=== PATIENT | male | born 1960 | race African-American/Black ===

== ENCOUNTER 2016-08-23 15:41 | Emergency (ER) | payer BC, OTHER ==
[~2016-08-23] VITALS: Ht 188 cm; Wt 112.5 kg
[~2016-08-23 15:41] MED LIST: ATENOLOL50 MG ORAL; CIPRO500 MG/51 PO; CRESTOR10 M2 ORAL; EXFORGE 10-3201 EACH ORAL; HYDROCHLOROTH12.5 MG ORAL; NORCO 5-325 TA1 EACH ORAL
--- NOTE | 2016-08-23 16:09 | Emergency Room Report ---
History of Present Illness General Chief Complaint: Pain Source: Patient Present Illness HPI Patient is a 55-year-old male who presented after having increased pain to his left arm as well as his chest. Patient had gradual onset of symptoms. Patient had no recent trauma. Patient reports having increased numbness and weakness to his left upper extremity. Patient denied prior chest pain the pain had been constant and worse with movements. Patient was noted to have a burning type sensation to his upper extremities which did not go to his hands. Allergies: Coded Allergies: No Known Allergies (Unverified , 12/08/13) Patient History Past Medical History: see triage record Reviewed Nursing Documentation: PMH: Agreed, PSxH: Agreed Nursing Documentation-PMH Hx Hypertension: Yes Review of Systems All Other Systems: negative except mentioned in HPI Physical Exam Vital Signs Date Time Temp Pulse Resp B/P Pulse Ox O2 Delivery O2 Flow Rate FiO2 08/23/16 15:45 97.9 61 17 135/84 94 Room Air Sp02 EP Interpretation: reviewed, normal General Appearance: normal inspection, well appearing, no apparent distress, alert, GCS 15, non-toxic Head: atraumatic ENT: normal ENT inspection, hearing grossly normal, normal voice Neck: normal inspection, supple, no bony tend, limited range of motion, tender lateral - increased pain with left rotation and compression Respiratory: normal inspection, lungs clear, normal breath sounds, no respiratory distress, no retraction, no wheezing Cardiovascular #1: regular rate, rhythm, no edema Gastrointestinal: normal inspection, normal bowel sounds, non tender, soft, no guarding, no hernia Genitourinary: no CVA tenderness Musculoskeletal: normal inspection, back normal, normal range of motion, other - limited ROM in extension, increased pain with left rotation Neurologic: normal inspection, alert, oriented x3, responsive, 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 Because of complexity of patient's case laboratory testing and imaging studies were ordered. A CT imaging of the cervical spine was ordered the patient's symptomatology.CT of chest was ordered due to patient's elevated d-dimer and the risk factors including prolonged driving as well as the abnormal EKG. The patient was noted to have a lateral and inferior T wave inversion. Patient states that he has had a cardiac catheterization approximately one year ago which showed no evidence of acute coronary blockage. EKG interpreted by de showed normal sinus rhythm with a rate of 65 there is T-wave inversion as well as inferior T-wave inversion as well as left ventricular hypertrophy. A CT of the chest read by radiologist showed no acute pulmonary embolism. Patient was noted to have some degenerative changes cervical spine CT. The patient is also noted to have some thyromegaly. Patient was advised of CT findings and was advised followup with a maintenance specialist. The patient is advised to follow up with primary care doctor in 1-2 days. Patient is advised to return if any worsening condition or if any changes in status that are concerning. Labs Test 08/23/16 16:11 White Blood Count 10.4 K/UL (4.8-10.8) Red Blood Count 5.14 M/UL (4.70-6.10) Hemoglobin 15.5 G/DL (14.2-18.0) Hematocrit 49.2 % (42.0-52.0) Mean Corpuscular Volume 96 FL (80-99) Mean Corpuscular Hemoglobin 30.2 PG (27.0-31.0) Mean Corpuscular Hemoglobin Concent 31.6 G/DL (32.0-36.0) Red Cell Distribution Width 12.8 % (11.6-14.8) Platelet Count 195 K/UL (150-450) Mean Platelet Volume 7.5 FL (6.5-10.1) Neutrophils (%) (Auto) 52.4 % (45.0-75.0) Lymphocytes (%) (Auto) 36.7 % (20.0-45.0) Monocytes (%) (Auto) 8.2 % (1.0-10.0) Eosinophils (%) (Auto) 1.9 % (0.0-3.0) Basophils (%) (Auto) 0.9 % (0.0-2.0) D-Dimer 518 ng/mL (<500) Sodium Level 142 mEQ/L (135-145) Potassium Level 4.0 mEQ/L (3.4-4.9) Chloride Level 98 mEQ/L (98-107) Carbon Dioxide Level 25 mEQ/L (20-30) Anion Gap 19 (5-15) Blood Urea Nitrogen 13 mg/dL (7-23) Creatinine 1.0 mg/dL (0.7-1.2) Estimat Glomerular Filtration Rate > 60 mL/min (>60) Glucose Level 100 mg/dL (74-106) Calcium Level 10.3 mg/dL (8.6-10.2) Total Bilirubin 0.5 mg/dL (0.0-1.2) Aspartate Amino Transf (AST/SGOT) 22 U/L (5-40) Alanine Aminotransferase (ALT/SGPT) 28 U/L (3-41) Alkaline Phosphatase 102 U/L (40-129) Total Creatine Kinase 430 U/L (38-174) Creatine Kinase MB 3.1 ng/mL (< 6.7) Creatine Kinase MB Relative Index 0.7 Troponin I < 0.30 ng/mL (<=0.30) Total Protein 8.0 g/dL (6.6-8.7) Albumin 4.3 g/dL (3.5-5.2) Globulin 3.7 g/dL Albumin/Globulin Ratio 1.1 (1.0-2.7) Chest X-Ray Diagnostic Results EP Interpretation: Yes Findings: no consolidation, no effusion, no pneumothorax, no acute cardiopulmonary disease Number of Views: 1 Last Vital Signs Date Time Temp Pulse Resp B/P Pulse Ox O2 Delivery O2 Flow Rate FiO2 08/23/16 15:45 97.9 61 17 135/84 94 Room Air Status: improved Disposition: HOME, SELF-CARE Condition: Stable Scripts Gabapentin* (NEURONTIN*) 400 Mg Capsule 400 MG ORAL THREE TIMES A DAY, #30 CAP 0 Refills Prov: Akash Palmer 08/23/16 Akash Palmer Aug 23, 2016 16:09
[2016-08-23] MEDS ORDERED: Dexamethasone 4mg/ml vial IVP ONE (16:15)
[2016-08-23] MEDS ORDERED: Ketorolac 30mg Inj IV ONE (16:15)
[2016-08-23 16:47] LABS: BASOPHILS % (AUTO) 0.9 % (0.0-2.0); EOSINOPHILS % (AUTO) 1.9 % (0.0-3.0); LYMPHOCYTES % (AUTO) 36.7 % (20.0-45.0); MEAN CORPUSCULAR HEMOGLOBIN 30.2 PG (27.0-31.0); MEAN CORPUSCULAR HGB CONC 31.6 G/DL (32.0-36.0); MEAN CORPUSCULAR VOLUME 96 FL (80-99); MEAN PLATELET VOLUME 7.5 FL (6.5-10.1); MONOCYTES % (AUTO) 8.2 % (1.0-10.0); NEUTROPHILS % (AUTO) 52.4 % (45.0-75.0); PLATELET COUNT 195 K/UL (150-450); RED BLOOD COUNT 5.14 M/UL (4.70-6.10); RED CELL DISTRIBUTION WIDTH 12.8 % (11.6-14.8); WHITE BLOOD COUNT 10.4 K/UL (4.8-10.8)
[2016-08-23 17:01] LABS: TROPONIN I < 0.30 ng/mL (<=0.30)
[2016-08-23 17:29] LABS: ALANINE AMINOTRANSFERASE 28 U/L (3-41); ALBUMIN/GLOBULIN RATIO 1.1 (1.0-2.7); ANION GAP 19 (5-15); ASPARTATE AMINO TRANSFERASE 22 U/L (5-40); CALCIUM 10.3 mg/dL (8.6-10.2); CARBON DIOXIDE 25 mEQ/L (20-30); CHLORIDE 98 mEQ/L (98-107); GLOMERULAR FILTRATION RATE > 60 mL/min (>60); HEMOLYSIS 8; SODIUM 142 mEQ/L (135-145)
[2016-08-23 17:38] LABS: CKMB 3.1 ng/mL (< 6.7)
[2016-08-23 18:19] VITALS: BP 146/84
[2016-08-23] MEDS ORDERED: NEURONTIN400 MG ORAL (18:29)
[2016-08-23 19:19] VITALS: BP 129/66
--- NOTE | 2016-08-24 10:25 | Diagnostic Imaging Report ---
Clinical history: Acute chest of breath. Technique: Portable AP chest radiograph was obtained. Comparison: 12/08/13. Findings: The lungs are well inflated and clear. There is no pneumonia or pulmonary edema. There is no pleural effusion or pneumothorax. The cardiac and mediastinal silhouettes are normal in appearance. The bony thorax is unremarkable. Impression: No radiographic evidence of acute cardiopulmonary process..
--- NOTE | 2016-08-24 10:27 | Diagnostic Imaging Report ---
History: Pain. Technique: Frontal, lateral, and open-mouth odontoid views of the cervical spine are provided. Comparison: None. Findings: Overall cervical alignment is maintained. Vertebral body and disk space heights are preserved. The lateral masses of C1 and C2 are well aligned. The atlantoaxial interval is normal. There is no prevertebral soft tissue swelling or other evidence of acute fracture. Impression: No radiographic evidence of acute displaced cervical spine fracture.
--- NOTE | 2016-08-24 10:46 | Diagnostic Imaging Report ---
HISTORY: Neck pain.\H\ \N\COMPARISON: None. \H\ \N\TECHNIQUE: \H\ \N\Serial axial images were obtained through the cervical spine without the use of intravenous contrast on a multidetector CT. Multiplanar reformatted images were then obtained. FINDINGS: Mild disc space height loss is noted at C5-C6 and C6-C7 levels. Vertebral body heights and remaining disc spaces are preserved. The lateral masses of C1 and C2 are well aligned. The AA interval is normal. There is no prevertebral or paraspinal soft tissue swelling or other evidence of acute fracture, subluxation, jumped facet, significant arthritic change or destructive bony lesion. Mild cervical spondylosis with multilevel uncovertebral and facet arthropathy resulting in some degree of neural foraminal stenosis, particularly at C3-C4 through C6-C7 levels noted. Opacification of the right sphenoid sinus is noted. Visualized thyroid gland appears enlarged and heterogeneous. IMPRESSION: 1. No acute cervical spine fracture or malalignment. 2. Mild cervical spondylosis. 3. Right sphenoid sinus opacification. 4. Thyromegaly. Please correlate with endocrinologic evaluation and thyroid function tests.
--- NOTE | 2016-08-24 16:29 | Cardiology Report ---
APPROVED REPORT EKG Measurement Heart [id number] Normal sinus rhythm Abnormal ECG
--- NOTE | 2016-08-26 09:12 | Diagnostic Imaging Report ---
EXAM: CT Chest HISTORY: Abnormal labs. Chest pain. TECHNIQUE: Serial 3.0 mm axial images were obtained from the thoracic inlet through the adrenals after administration of 120 cc of Isovue 370 . Multiplanar reformats were performed. COMPARISON: No prior study is available for comparison. FINDINGS: Mild subsegmental atelectasis or scarring is noted at the right lung base. No lobar or segmental consolidation noted. No pleural effusion is seen. Secretions are noted in the lower trachea and right mainstem bronchus. The heart is not enlarged. There is no evidence of pericardial effusion. There is no evidence of mediastinal, hilar or axillary adenopathy. The thyroid appears unremarkable. There is adequate opacification of the pulmonary arteries to the segmental level. The subsegmental pulmonary arteries are not optimally evaluated. Within this confine, no acute pulmonary embolism identified. Thoracic aorta and great vessels are normal in caliber. The visualized upper abdominal organs appear grossly normal. Chronic fracture deformity of the left posterior fifth and sixth ribs noted. IMPRESSION: 1. No distinct evidence of acute pulmonary embolism. 2. No evidence of pneumonia. Suspected right basilar atelectasis or scarring. 3. Chronic fracture deformity of the left posterior fifth and sixth ribs.
== END 2016-08-23 19:19 | disposition home or self-care (01) ==
LOC: EMR 16:35
DX: M54.12 Radiculopathy, cervical region (principal); I51.7 Cardiomegaly; R94.31 Abnormal electrocardiogram [ECG] [EKG]; I10 Essential (primary) hypertension; M79.602 Pain in left arm
CPT/HCPCS: 36415; 71010; 71275; 72040; 72125; 80053; 82550; 82553; 84484; 85025; 85379; 93005; 96374; 96375; 99284; J1100; J1885; Q9967

== ENCOUNTER 2018-02-17 10:13 | Day surgery (SDC) | payer OTHER ==
--- NOTE | 2018-02-15 11:01 | Pre-op HX & Phy Repo 2 SIG ---
DATE OF ADMISSION: 02/17/2018 ANTICIPATED DATE OF SURGERY: 02/17/2018 HISTORY OF PRESENT ILLNESS: The patient is a 57-year-old gentleman who I initially evaluated in 06/2015, with symptomatic posterior vitreous detachment and epiretinal membrane in his left eye. He underwent a pars plana vitrectomy with membrane peel at [facility] on December 09, 2017. He has done well postoperatively. He is now being scheduled for pars plana vitrectomy for the right eye for symptomatic vitreous opacities. PAST MEDICAL HISTORY: Marked for hypercholesteremia, hypertension, arthritis, asthma. He is status post hand surgery and previous vitrectomy. MEDICATIONS: Include Crestor, hydrochlorothiazide, amlodipine, valsartan. ALLERGIES: He has no known drug allergies. SOCIAL HISTORY: Remarkable for occasional alcohol use. He does not use tobacco. OPHTHALMIC EXAMINATION: Visual acuity 20/20 right eye. Tension is 18 in the right and 17 in the left eye. Slit-lamp demonstrated the conjunctiva is quiet. The cornea is clear. The anterior chambers are quiet with 1+ nuclear sclerosis of the lenses of both eyes. Dilated vitreoretinal examination of right eye demonstrates clear media with cup-to-disc ratio of 0.3. There is a posterior vitreous detachment with opacities present with some and has flattened periphery. Left eye media is clear, status post vitrectomy. There is mild thickening of macula, status post recent membrane peel flattened periphery. IMPRESSION: Symptomatic vitreous opacities in the right eye and posterior vitreous detachment, right eye. I discussed my findings with the patient. 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 He states that this is causing him to feel unsafe at work and for this reason, I will go ahead and recommend vitrectomy with possible membrane peel to the right eye. Complications such as hemorrhage, infection, loss of vision, loss of eye, ptosis, glaucoma, strabismus, failure to obtain desired results, cataract, dislocated lens, retinal detachment were all discussed. He understands and agrees to the surgery,. Greg Jackson M.D. DR: Geovanna JOB#: [id number] CC:
[2018-02-17] VITALS (9 sets, daily range): BP systolic 133–166; BP diastolic 85–101
[~2018-02-17] VITALS: Ht 188 cm; Wt 108.9 kg
[~2018-02-17 10:13] MED LIST changes: +AMLODIPINE BESY10 MG ORAL; +BYSTOLIC10 MG ORAL; +DIOVAN320 MG ORAL; +NEURONTIN400 MG ORAL; +Vigamox Opth Soln 3ml RIGHT EYE SCH
[2018-02-17] MEDS ORDERED: Phenylephrine 2.5% Op 2ml Soln ONE (10:23)
[2018-02-17] MEDS ORDERED: Cyclopentolate 1% Opth Sol 2ml ONE (10:23)
[2018-02-17] MEDS ORDERED: Tropicamide 1% Opth 15ml Soln ONE (10:23)
[2018-02-17] MEDS ORDERED: Vigamox Opth Soln 3ml ONE (10:24)
[2018-02-17] MEDS: Phenylephrine 2.5% Op 2ml Soln RIGHT EYE SCH ×3 (10:37→10:54)
[2018-02-17] MEDS: Tropicamide 1% Opth 15ml Soln RIGHT EYE SCH ×3 (10:37→10:53)
[2018-02-17] MEDS: Cyclopentolate 1% Opth Sol 2ml RIGHT EYE SCH ×3 (10:37→10:54)
--- NOTE | 2018-02-17 11:30 | Pre-Procedure Note/Attestation ---
Pre-Procedure Note/Attestation Complete Prior to Procedure Planned Procedure: right Procedure Narrative: pars plana vitrectomy Indications for Procedure Pre-Operative Diagnosis: Posterior vitreous detachment with vitreous opacities Attestation I attest that I discussed the nature of the procedure; its benefits; risks and complications; and alternatives (and the risks and benefits of such alternatives ), prior to the procedure, with the patient (or the patient's legal customer contact representative). I attest that, if there was a reasonable possibility of needing a blood transfusion, the patient (or the patient's legal customer contact representative) was given the [facility] standardized written summary, pursuant to the Max Vasquez Blood Safety Act ([place] Health and Safety Code # 1645, as amended). I attest that I re-evaluated the patient just prior to the surgery and that there has been no change in the patient's H&P, except as documented below: Greg Jackson MD Feb 17, 2018 11:30
[2018-02-17] MEDS ORDERED: Sterile Water Irrig 1000ml IRRIG ONE (12:00)
[2018-02-17] MEDS ORDERED: LR 1000ml ONE (12:00)
[2018-02-17] MEDS ORDERED: NS Irrig 1000ml ONE (12:00)
[2018-02-17] MEDS ORDERED: BSS 500ml btl ONE (12:06)
[2018-02-17] MEDS ORDERED: Goniosol 2.5% Opth Soln - 15ml ONE (12:06)
[2018-02-17] MEDS ORDERED: EPINEPHrine 1mg/1ml Amp ONE (12:06)
[2018-02-17] MEDS ORDERED: Lidocaine 4% Amp ONE (12:06)
[2018-02-17] MEDS ORDERED: Dexamethasone 4mg/ml vial ONE (12:06)
[2018-02-17] MEDS ORDERED: BSS 15ml BTL ONE (12:07)
[2018-02-17] MEDS ORDERED: Bupivacaine 0.75% 30ml vial INJ ONE (12:07)
[2018-02-17] MEDS ORDERED: Tetracaine 0.5% Opth 4ml Soln ONE (12:07)
[2018-02-17] MEDS ORDERED: Povidone-Iodine 5% opth solution ONE (12:07)
[2018-02-17] MEDS ORDERED: Lidocaine 1% MPF 10mg/ml 5ml ONE (12:14)
[2018-02-17] MEDS ORDERED: Midazolam 2mg/2ml Inj ONE (12:14)
[2018-02-17] MEDS ORDERED: Propofol 200mg/20ml IV ONE (12:14)
[2018-02-17] MEDS ORDERED: fentaNYL 100 mcg/2 mL IV ONE (12:14)
[2018-02-17] MEDS ORDERED: DiphenhydrAMINE 50mg/ml Inj ONE (12:20)
[2018-02-17] MEDS ORDERED: LR 1000ml 1,000 ML IVLG SCH (12:41)
--- NOTE | 2018-02-17 12:41 | Anethesia Preoperative Eval ---
Anesthesia Pre-op PMH/ROS General Date of Evaluation: Feb 17, 2018 Anesthesiologist: John ASA Score: ASA 2 Mallampati Score Class I : Soft palate, uvula, fauces, pillars visible Class II: Soft palate, uvula, fauces visible Class III: Soft palate, base of uvula visible Class IV: Only hard plate visible Mallampati Classification: Class II Surgeon: Renetta Diagnosis: Right eye retinal detachment Surgical Procedure: Right eye vitrectomy Anesthesia History: none Family History: no anesthesia problems Allergies: Coded Allergies: No Known Allergies (Unverified , 02/16/18) Medications: see eMAR Past Medical History Cardiovascular: Reports: HTN, other - HLD; Denies: CAD, TN, valve dz, arrhythmia Pulmonary: Denies: asthma, COPD, GLORY, other Gastrointestinal/Genitourinary: Denies: GERD, CRI, ESRD, other Neurologic/Psychiatric: Denies: dementia, CVA, depression/anxiety, TIA, other Endocrine: Denies: DM, hypothyroidism, steroids, other HEENT: Denies: cataract (L), cataract (R), glaucoma, CAMPO (L), CAMPO (R), other Hematology/Immune: Denies: anemia, DVT, bleeding disorder, other Musculoskeletal/Integumentary: Reports: OA; Denies: RA, DJD, DDD, edema, other Other: obesity PSxH Narrative: left eye vitrectomy Anesthesia Pre-op Phys. Exam Physician Exam Last Vital Signs Date Time Temp Pulse Resp B/P (MAP) Pulse Ox O2 Delivery O2 Flow Rate FiO2 02/17/18 10:52 97.3 50 18 133/85 (101) 97 97.3 02/17/18 10:42 Room Air Constitutional: NAD Cardiovascular: RRR Respiratory: CTA Airway Exam Mallampati Score: Class II MO: full ROM: full Teeth: intact Anesthesia Pre-op A/P Labs see chart Studies Pre-op Studies: EKG - sr Risk Assessment & Plan Assessment: ASA II Plan: MAC Status Change Before Surgery: No Pre-Antibiotics Drug: N/A Majo Ayala MD Feb 17, 2018 12:41
[2018-02-17] MEDS ORDERED: DiphenhydrAMINE 50mg/ml Inj IVP PRN (12:45)
[2018-02-17] MEDS ORDERED: Labetalol 5mg/ml 20ml vial IV PRN (12:45)
--- NOTE | 2018-02-17 13:00 | 48 Hour Post Anesthesia Eval ---
Post Anesthesia Evaluation Procedure: Right eye vitrectomy Date of Evaluation: Feb 17, 2018 Airway: patent Nausea: No Vomiting: No Pain Intensity: 0 Hydration Status: adequate Cardiopulmonary Status: at baseline Mental Status/LOC: patient returned to baseline Post-Anesthesia Complications: 0 Follow-up care needed: ready to discharge Majo Ayala MD Feb 17, 2018 13:00
--- NOTE | 2018-02-17 13:00 | Immediate Post-Op Evaluation ---
Immediate Post-Op Evalulation Immediate Post-Op Evalulation Procedure: Right eye vitrectomy Date of Evaluation: Feb 17, 2018 Time of Evaluation: 13:00 IV Fluids: 200 Blood Products: 0 Estimated Blood Loss: 0 Urinary Output: 0 Blood Pressure Systolic: 151 Blood Pressure Diastolic: 95 Pulse Rate: 51 Respiratory Rate: 12 O2 Sat by Pulse Oximetry: 98 Temperature (Fahrenheit): 97.4 Pain Score (1-10): 0 Nausea: No Vomiting: No Complications 0 Patient Status: awake, reacts, patent, none Hydration Status: adequate Drug: N/A Majo Ayala MD Feb 17, 2018 13:00
--- NOTE | 2018-02-17 13:26 | Brief Operative Note ---
Immediate Post Operative Note Operative Note Pre-op Diagnosis: Posterior vitreous detachment with vitreous opacities Procedure: pars plana vitrectomy OD Post-op Diagnosis: same as pre op Post-op Diagnosis: same as pre-op Anesthesia: local, MAC Specimen: none Complications: none Fluids: o Estimated Blood Loss: none Drains: hemovac Implant(s) used?: No Greg Jackson MD Feb 17, 2018 13:26
--- NOTE | 2018-02-17 18:45 | Operative Note - Dictated ---
DATE OF OPERATION: 02/17/2018 PREOPERATIVE DIAGNOSIS: Vitreous opacities, right eye. POSTOPERATIVE DIAGNOSIS: Vitreous opacities, right eye. PROCEDURE: Pars plana vitrectomy, right eye. SURGEON: Greg Jackson M.D. . ANESTHESIA: Local (4% lidocaine and 0.75% bupivacaine via retrobulbar injection). COMPLICATIONS: None. DESCRIPTION OF PROCEDURE: After informed consent was obtained, clearance by anesthesia, identification by Dr. Jackson, the patient was brought to the operating room where he received anesthetic injection. The right eye was prepped and draped in usual sterile ophthalmic fashion. A wire lid speculum was placed in conjunctiva fornix and a 3-port 27-gauge vitrectomy was created, trocars and cannulas placed, 4 mm posterior surgical limbus supratemporally, supranasally, and inferotemporally. Once the infusion cannula was noted to be inside the eye, the infusion was turned on. The cortical vitreous then moved from the posterior surface of the lens to the surface of the retina, which was excised to the vitreous base. The eye was examined using scleral depression. No holes or tears were noted in the periphery. The trocar and cannulas were removed. The wounds were noted to be watertight. Subconjunctival cefazolin, Decadron and topical atropine drops were placed. The eye was patched and shielded. The patient left the operating room in stable condition. Greg Jackson M.D. DR: DEBBIE JOB#: [id number] CC:
== END 2018-02-17 15:00 | disposition home or self-care (01) ==
LOC: SUR 10:13
DX: H43.391 Other vitreous opacities, right eye (principal); E78.00 Pure hypercholesterolemia, unspecified; I10 Essential (primary) hypertension; M19.90 Unspecified osteoarthritis, unspecified site; J45.909 Unspecified asthma, uncomplicated; G47.33 Obstructive sleep apnea (adult) (pediatric); E66.9 Obesity, unspecified; Z68.30 Body mass index [BMI] 30.0-30.9, adult
CPT/HCPCS: 67036; J0171; J0690; J1100; J1200; J2250; J2704; J3010; J3470; J3490; J7120; 94003; 94150

== ENCOUNTER 2018-09-19 00:38 | Emergency (ER) | payer OTHER ==
[~2018-09-19] VITALS: Ht 188 cm; Wt 115.7 kg
[~2018-09-19 00:38] MED LIST changes: -Vigamox Opth Soln 3ml RIGHT EYE SCH
--- NOTE | 2018-09-19 00:58 | NUR ---
ED Nurse Note: Patient presents with complaints of heart palpiatations but no pain.
[2018-09-19 00:59] VITALS: BP 129/69
[2018-09-19 01:28] LABS: BASOPHILS % (AUTO) 0.8 % (0.0-2.0); EOSINOPHILS % (AUTO) 1.9 % (0.0-3.0); HEMATOCRIT 42.2 % (42.0-52.0); HEMOGLOBIN 13.8 G/DL (14.2-18.0); LYMPHOCYTES % (AUTO) 41.6 % (20.0-45.0); MEAN CORPUSCULAR VOLUME 95 FL (80-99); NEUTROPHILS % (AUTO) 47.8 % (45.0-75.0); PLATELET COUNT 146 K/UL (150-450); RED BLOOD COUNT 4.47 M/UL (4.70-6.10); RED CELL DISTRIBUTION WIDTH 12.4 % (11.6-14.8); WHITE BLOOD COUNT 9.1 K/UL (4.8-10.8)
[2018-09-19 01:39] LABS: ANION GAP 10 mmol/L (5-15); BLOOD UREA NITROGEN 20 mg/dL (7-18); CALCIUM 9.4 MG/DL (8.5-10.1); CARBON DIOXIDE 28 MMOL/L (21-32); CHLORIDE 104 MMOL/L (98-107); POTASSIUM 3.2 MMOL/L (3.5-5.1); SODIUM 142 MMOL/L (136-145)
[2018-09-19 01:54] LABS: ALANINE AMINOTRANSFERASE 29 U/L (12-78); ALBUMIN 3.6 G/DL (3.4-5.0); ALBUMIN/GLOBULIN RATIO 0.9 (1.0-2.7); ALKALINE PHOSPHATASE 109 U/L (46-116); ASPARTATE AMINO TRANSFERASE 16 U/L (15-37); BILIRUBIN,TOTAL 0.3 MG/DL (0.2-1.0); CKMB 2.6 NG/ML (0.0-3.6); CREATINE KINASE 346 U/L (26-308)
--- NOTE | 2018-09-19 02:20 | NUR ---
ED Nurse Note: Patient cleared for discharge, medication administered, patient vebalized understanding of discharge instructions. ID band removed, iV removed, patient ambulatory with steady gait. departed with all personal belongings accompanied by his girlfriend.
[2018-09-19 02:22] VITALS: BP 129/69
--- NOTE | 2018-09-19 02:27 | Diagnostic Imaging Report ---
EXAM: XR Chest, 1 View CLINICAL HISTORY: CP TECHNIQUE: Frontal view of the chest. COMPARISON: 08-23-16 FINDINGS: Lungs: Unremarkable. No consolidation. Pleural space: Unremarkable. No pneumothorax. Heart: Unremarkable. No cardiomegaly. Mediastinum: Unremarkable. Bones/joints: Old left rib fractures. IMPRESSION: No acute findings substantial change
--- NOTE | 2018-09-19 03:25 | Emergency Room Report ---
History of Present Illness General Chief Complaint: Palpitations Source: Patient Present Illness HPI 57-year-old male presents ED for evaluation. Patient complaining of palpitations. Tates that for the last week and a half he's been feeling a skipped beat. States he feels short of breath for that moment. States he used to get these episodes occasionally but feels more persistent over the last week and a half. Denies any chest pain or shortness of breath. Notes history of hypertension. States he is compliant with his medications. Denies smoking or drug use. No other aggravating relieving factors. Denies any other associated symptoms Allergies: Coded Allergies: No Known Allergies (Unverified , 02/16/18) Patient History Past Medical History: HTN Past Surgical History: none Pertinent Family History: none Social History: Denies: smoking, alcohol use, drug use Immunizations: UTD Reviewed Nursing Documentation: PMH: Agreed; PSxH: Agreed Nursing Documentation-PMH Hx Cardiac Problems: Yes Hx Hypertension: Yes Hx Asthma: Yes Hx Cancer: No Hx Gastrointestinal Problems: No Hx Neurological Problems: No Review of Systems All Other Systems: negative except mentioned in HPI Physical Exam Vital Signs Date Time Temp Pulse Resp B/P (MAP) Pulse Ox O2 Delivery O2 Flow Rate FiO2 09/19/18 00:44 98.2 60 16 132/65 93 Room Air Sp02 EP Interpretation: reviewed, normal General Appearance: no apparent distress, alert, GCS 15, non-toxic, obese Head: normocephalic, atraumatic Eyes: bilateral eye normal inspection, bilateral eye PERRL ENT: hearing grossly normal, normal pharynx, no angioedema, normal voice Neck: full range of motion, supple/symm/no masses Respiratory: chest non-tender, lungs clear, normal breath sounds, speaking full sentences Cardiovascular #1: regular rate, rhythm, no edema Cardiovascular #2: 2+ carotid (R), 2+ carotid (L), 2+ radial (R), 2+ radial (L) , 2+ dorsalis pedis (R), 2+ dorsalis pedis (L) Gastrointestinal: normal bowel sounds, non tender, soft, non-distended, no guarding, no rebound Rectal: deferred Genitourinary: normal inspection, no CVA tenderness Musculoskeletal: back normal, gait/station normal, normal range of motion, non- tender Neurologic: alert, oriented x3, responsive, motor strength/tone normal, sensory intact, speech normal Psychiatric: judgement/insight normal, memory normal, mood/affect normal, no suicidal/homicidal ideation Reflexes: 3+ bicep (R), 3+ bicep (L), 3+ tricep (R), 3+ tricep (L), 3+ knee (R) , 3+ knee (L) Skin: normal color, no rash, warm/dry, well hydrated Lymphatic: no adenopathy Medical Decision Making Diagnostic Impression: Primary Impression: Palpitations ER Course Hospital Course 57-year-old M presents ED complaining of palpitations Differential diagnoses include: afib, Vtach, SVT, anxiety, dehydration Clinical course Patient placed on stretcher. After initial history and physical I ordered labs , EKG, chest x-ray, IVFs. labs reviewed- all electrolytes normal, troponins negative, no leukocytosis, hemoglobin/hematocrit stable EKG - sinus bradycardia, PVCs noted Chest x-ray-no cardiomegaly, no rib fracture, no pneumothorax, no acute process During ED course patient had PVCs on the teletypesetter monitor. Never persistent. Patient asymptomatic here. Discussed findings with patient. I believe patient can be safely discharged to home at this time. Patient states he has a PMD he can follow-up with this week. I. I feel this is a highly complex case requiring extensive working including EKG/Rhythm strip, Xray/CT/US, Blood/urine lab work, repeat exams while in ED, and administration of strong opiates/narcotics for pain control, admission to hospital or close patient follow up. Diagnosis - palpitations Stable and discharged to home. Instructed to followup with PMD. Return to ED if symptoms recur or worsen Labs Test 09/19/18 01:13 White Blood Count 9.1 K/UL (4.8-10.8) Red Blood Count 4.47 M/UL (4.70-6.10) Hemoglobin 13.8 G/DL (14.2-18.0) Hematocrit 42.2 % (42.0-52.0) Mean Corpuscular Volume 95 FL (80-99) Mean Corpuscular Hemoglobin 30.9 PG (27.0-31.0) Mean Corpuscular Hemoglobin Concent 32.6 G/DL (32.0-36.0) Red Cell Distribution Width 12.4 % (11.6-14.8) Platelet Count 146 K/UL (150-450) Mean Platelet Volume 7.7 FL (6.5-10.1) Neutrophils (%) (Auto) 47.8 % (45.0-75.0) Lymphocytes (%) (Auto) 41.6 % (20.0-45.0) Monocytes (%) (Auto) 8.0 % (1.0-10.0) Eosinophils (%) (Auto) 1.9 % (0.0-3.0) Basophils (%) (Auto) 0.8 % (0.0-2.0) Sodium Level 142 MMOL/L (136-145) Potassium Level 3.2 MMOL/L (3.5-5.1) Chloride Level 104 MMOL/L (98-107) Carbon Dioxide Level 28 MMOL/L (21-32) Anion Gap 10 mmol/L (5-15) Blood Urea Nitrogen 20 mg/dL (7-18) Creatinine 1.0 MG/DL (0.55-1.30) Estimat Glomerular Filtration Rate > 60 mL/min (>60) Glucose Level 103 MG/DL (74-106) Calcium Level 9.4 MG/DL (8.5-10.1) Total Bilirubin 0.3 MG/DL (0.2-1.0) Aspartate Amino Transf (AST/SGOT) 16 U/L (15-37) Alanine Aminotransferase (ALT/SGPT) 29 U/L (12-78) Alkaline Phosphatase 109 U/L (46-116) Total Creatine Kinase 346 U/L (26-308) Creatine Kinase MB 2.6 NG/ML (0.0-3.6) Creatine Kinase MB Relative Index 0.7 Troponin I 0.000 ng/mL (0.000-0.056) Total Protein 7.5 G/DL (6.4-8.2) Albumin 3.6 G/DL (3.4-5.0) Globulin 3.9 g/dL Albumin/Globulin Ratio 0.9 (1.0-2.7) EKG Diagnostic Results Rate: bradycardiac Rhythm: NSR ST Segments: other - PVCs ASA given to the pt in ED: No Rhythm Strip Diag. Results EP Interpretation: yes Rhythm: other - PVCs noted Chest X-Ray Diagnostic Results Chest X-Ray Diagnostic Results : Chest X-Ray Ordered: Yes # of Views/Limited/Complete: 1 View Indication: Other EP Interpretation: Yes Interpretation: no consolidation, no effusion, no pneumothorax, no acute cardiopulmonary disease Impression: No acute disease Electronically Signed by: Electronically signed by Varghese Singh MD Last Vital Signs Date Time Temp Pulse Resp B/P (MAP) Pulse Ox O2 Delivery O2 Flow Rate FiO2 09/19/18 02:22 98.2 16 129/69 93 Room Air 09/19/18 00:59 56 Status: improved Disposition: HOME, SELF-CARE Condition: Stable Referrals: NON PHYSICIAN (PCP) Patient Instructions: Premature Ventricular Contraction Varghese Singh MD Sep 19, 2018 03:25
--- NOTE | 2018-09-22 01:29 | Cardiology Report ---
APPROVED REPORT EKG Measurement Heart [id number] Sinus bradycardia with occasional premature ventricular complexes Abnormal ECG
== END 2018-09-19 02:24 | disposition home or self-care (01) ==
LOC: EMR 01:21
DX: R00.2 Palpitations (principal); I10 Essential (primary) hypertension; J45.909 Unspecified asthma, uncomplicated
CPT/HCPCS: 36415; 71045; 80053; 82550; 82553; 84484; 85025; 93005; 99283; J8499